=== PATIENT | female | born 1970 | race Caucasian/White ===

== ENCOUNTER 2016-11-29 14:14 | Emergency (ER) | payer MEDICAID, OTHER ==
[~2016-11-29] VITALS: Wt 68.0 kg
[2016-11-29] MEDS ORDERED: SULF1TAB31 PO (14:50)
[2016-11-29] MEDS ORDERED: CEPH-443 PO (14:51)
--- NOTE | 2016-11-29 14:54 | ERD ---
ER Documentation Chief Complaint Date/Time DATE: 11/29/16 TIME: 14:52 Chief Complaint scalp itch for the past 8 days. no trauma or drainage HPI Patient is a 46-year-old female presents to the ED for concerns of scalp itching and pain. Patient states initially she noticed a small pimple in the back of her head. She states over the last week, the lesion has been growing in size. Patient denies any drainage or bleeding from the active lesion. She also reports scaly skin of her scalp. Patient denies any head injury. Patient denies any fevers, chills nausea, vomiting, chest pain, shortness of breath, LOC. Patient does report right-sided ear pain. She denies any new environments. ROS All systems reviewed and are negative except as per history of present illness. Medications Home Meds Active Scripts Cephalexin* (Keflex*) 500 Mg Capsule, 500 MG PO QID for 10 Days, CAP Prov:DONN ALDANA PA-C 11/29/16 Sulfamethoxazole/Trimethoprim* (Bactrim Ds* Tablet) 1 Each Tablet, 1 TAB PO BID , #20 TAB Prov:DONN ALDANA PA-C 11/29/16 Allergies Allergies: Coded Allergies: No Known Allergy (Unverified , 03/03/14) PMhx/Soc Medical and Surgical Hx: pt denies Medical Hx, pt denies Surgical Hx History of Surgery: No Anesthesia Reaction: No Hx Neurological Disorder: No Hx Respiratory Disorders: No Hx Cardiac Disorders: No Hx Psychiatric Problems: No Hx Miscellaneous Medical Probl: No Hx Alcohol Use: No Hx Substance Use: No Hx Tobacco Use: No Smoking Status: Never smoker FmHx Family History: No diabetes Physical Exam Vitals Vital Signs Date Time Temp Pulse Resp B/P Pulse Ox O2 Delivery O2 Flow Rate FiO2 11/29/16 14:16 98.5 75 20 132/68 99 Physical Exam GENERAL: Well-developed, well-nourished female. Appears in no acute distress. HEAD: Normocephalic, atraumatic. No deformities or ecchymosis. 2 cm erythematous, circular boil noted in the patient's mid occipital region. No active bleeding or discharge. No fluctuance or induration noed. No Infestations noted in patient's scalp or hair. +Dry scalp, flaking noted. EYE: Pupils equal, round, and reactive to light. EOMs intact. No conjunctival erythema. No eye discharge. ENT: External ear without any masses or tenderness. Auditory canals clear bilaterally. TM visualized bilaterally, non-erythematous, non-bulging. Nasal mucosa pink with no discharge. NECK: Supple. No meningismus. Normal ROM of the neck. No cervical spine tenderness noted. LUNG: Clear to auscultation bilaterally. No rhonchi, wheezing, rales or coarse breath sounds. HEART: Regular rate and rhythm. No murmurs, rubs or gallops. BACK: No midline tenderness. EXTREMITIES: Equal pulses bilaterally. No peripheral clubbing, cyanosis or edema. No unilateral leg swelling. NEUROLOGIC: Alert and oriented to person, place and time. Moving all four extremities. 5/5 strength in all extremities. Normal speech. Steady gait. SKIN: Normal color. Warm and dry. No rashes or lesions. Procedures/MDM MEDICAL DECISION MAKING: Patient is a 46-year-old female presents to the ED with concerns of a lesion to the back of her head as well as scalp itching. Patient also reported right- sided ear pain. Vital signs were reviewed. Patient is afebrile. Patient was not hypoxic. Patient was hemodynamically stable. At this time, patient's presentation was consistent with scalp boil. Low suspicion for deep space infection, abscess, scalp infestations, tension headache, migraine headache, acute otitis media, otitis externa. PRESCRIPTION: Bactrim, Keflex DISCHARGE: At this time, patient is stable for discharge and outpatient management. Warm compresses advised. Patient was given referral information for beauty sales consultant. I have instructed the patient to follow-up with his/her primary care physician in 1-2 days. I have discussed with the patient the possibility of needing to see a specialist for further workup and imaging studies if symptoms persist. I have instructed the patient to promptly return to the ER for any new or worsening symptoms including increased pain, fever, nausea, vomiting, weakness or LOC. The patient and/or family expressed understanding of and agreement with this plan. All questions were answered. Home care instructions were provided. Departure Diagnosis: Primary Impression: Boil of head or scalp Additional Impression: Ear pain, right Condition: Stable Patient Instructions: Abscess, Antiobiotic Treatment Only Referrals: DORIS ELLINGTON MD,KAEL SWANN,OSORIO M MD BHAVIN SUH LAWRENCE J [facility] YOU HAVE RECEIVED A MEDICAL SCREENING EXAM AND THE RESULTS INDICATE THAT YOU DO NOT HAVE A CONDITION THAT REQUIRES URGENT TREATMENT IN THE EMERGENCY DEPARTMENT. FURTHER EVALUATION AND TREATMENT OF YOUR CONDITION CAN WAIT UNTIL YOU ARE SEEN IN YOUR DOCTORS OFFICE WITHIN THE NEXT 1-2 DAYS. IT IS YOUR RESPONSIBILITY TO MAKE AN APPOINTMENT FOR FOLOW-UP CARE. IF YOU HAVE A PRIMARY DOCTOR --you should call your primary doctor and schedule an appointment IF YOU DO NOT HAVE A PRIMARY DOCTOR YOU CAN CALL OUR PHYSICIAN REFERRAL HOTLINE AT IF YOU CAN NOT AFFORD TO SEE A PHYSICIAN YOU CAN CHOSE FROM THE FOLLOWING [facility] [address] [facility] [address] [facility] [address] [facility] [address] [facility] [address] [facility]. [facility] [address] [facility]. [facility] YOU HAVE RECEIVED A MEDICAL SCREENING EXAM AND THE RESULTS INDICATE THAT YOU DO NOT HAVE A CONDITION THAT REQUIRES URGENT TREATMENT IN THE EMERGENCY DEPARTMENT. FURTHER EVALUATION AND TREATMENT OF YOUR CONDITION CAN WAIT UNTIL YOU ARE SEEN IN YOUR DOCTORS OFFICE WITHIN THE NEXT 1-2 DAYS. IT IS YOUR RESPONSIBILITY TO MAKE AN APPOINTMENT FOR FOLOW-UP CARE. IF YOU HAVE A PRIMARY DOCTOR --you should call your primary doctor and schedule and appointment IF YOU DO NOT HAVE A PRIMARY DOCTOR YOU CAN CALL OUR PHYSICIAN REFERRAL HOTLINE AT . IF YOU CAN NOT AFFORD TO SEE A PHYSICIAN YOU CAN CHOSE FROM THE FOLLOWING [facility] INSTITUTIONS: [facility] [address] [place] [address] [facility] [address] [place] [address] [facility] [address] [place] [address] Additional Instructions: Llame al doctor MAANA y mandi joey YEIMI PARA DENTRO DE 1-2 [address].Dgale a la secretaria que nosotros le instruimos hacer esta yeimi.Avise o llame si montiel condicin se empeora antes de la yeimi. Regresa aqui si peor o no mejor. See referral information for beauty sales consultant. DONN ALDANA PA-C Nov 29, 2016 14:54
== END 2016-11-29 16:06 | disposition home or self-care (01) ==
LOC: FTE 14:14
DX: L02.821 Furuncle of head [any part, except face] (principal); H92.01 Otalgia, right ear
CPT/HCPCS: 99284

== ENCOUNTER 2017-08-21 10:00 | Emergency (ER) | END 2017-08-21 10:10 | disposition home or self-care (01) ==

== ENCOUNTER 2018-10-02 08:50 | Emergency (ER) | payer MEDICAID ==
[~2018-10-02] VITALS: Ht 160 cm; Wt 87.0 kg
[~2018-10-02 08:50] MED LIST: CEPH-443 PO; IBUP-1542 PO; SULF1TAB31 PO
[2018-10-02 08:59] VITALS: BP 127/66; PULSE 57; RESP 22; Ht 160 cm; Wt 87.0 kg
[2018-10-02] MEDS ORDERED: POLYMYXIN/TRIMETHOPRIM 10 ML OPH BOTH EYES ONE (09:30)
[2018-10-02] MEDS ORDERED: AMOX500C2 PO (09:31)
[2018-10-02] MEDS ORDERED: BENZ-6 PO (09:31)
[2018-10-02] MEDS ORDERED: POLY10DR19 BOTH EYES (09:31)
--- NOTE | 2018-10-02 09:38 | ERD ---
ER Documentation Chief Complaint Chief Complaint bilateral eyes - pain/irritation and redness; right ear pain HPI 47-year-old female presents with complaint of bilateral eye redness, right ear pain, and cough for last 2 days. Patient states that she is been having some discharge from the bilateral eyes. Denies any difficulty with vision. Denies any acute pain in the eyes. Denies any decreased hearing. Denies any fevers, dysuria, joint pain, chest pain, wheezing, stridor, shortness of breath. Denies any treatments. Denies allergies. Denies medical problems. ROS All systems reviewed and are negative except as per history of present illness. Medications Home Meds Active Scripts Benzonatate* (Tessalon Perle*) 100 Mg Capsule, 100 MG PO Q8H PRN for COUGH, #30 CAP Prov:BRANDEE CRAFT 10/02/18 Polymyxin B Sulfate-TMP* (Polymyxin B-TMP Eye Drops*) 10 Ml Drops, 1 DROP BOTH EYES Q3H for conjunctivitis for 10 Days, EA Prov:BRANDEE CRAFT 10/02/18 Amoxicillin* (Amoxicillin*) 500 Mg Cap, 500 MG PO TID for otitis media for 10 Days, CAP Prov:BRANDEE CRAFT 10/02/18 Ibuprofen* (Motrin*) 600 Mg Tab, 600 MG PO Q6, #30 TAB Prov:AYAH COWAN PA-C 08/21/17 Sulfamethoxazole/Trimethoprim* (Bactrim Ds* Tablet) 1 Each Tablet, 1 TAB PO BID, #14 TAB Prov:AYAH COWAN PA-C 08/21/17 Cephalexin* (Keflex*) 500 Mg Capsule, 500 MG PO QID for 7 Days, CAP Prov:AYAH COWAN PA-C 08/21/17 Cephalexin* (Keflex*) 500 Mg Capsule, 500 MG PO QID for 10 Days, CAP Prov:DONN ALDANA PA-C 11/29/16 Sulfamethoxazole/Trimethoprim* (Bactrim Ds* Tablet) 1 Each Tablet, 1 TAB PO BID, #20 TAB Prov:DONN ALDANA PA-C 11/29/16 Allergies Allergies: Coded Allergies: No Known Allergy (Unverified , 03/03/14) PMhx/Soc History of Surgery: No Anesthesia Reaction: No Hx Neurological Disorder: No Hx Respiratory Disorders: No Hx Cardiac Disorders: No Hx Psychiatric Problems: No Hx Miscellaneous Medical Probl: No Hx Alcohol Use: No Hx Substance Use: No Hx Tobacco Use: No FmHx Family History: No diabetes, No coronary disease, No other Physical Exam Vitals Vital Signs Date Temp Pulse Resp B/P (MAP) Pulse Ox O2 O2 Flow FiO2 Time Delivery Rate 10/02/18 97.8 57 22 127/66 97 08:59 (86) Physical Exam Const: No acute distress Head: Atraumatic Eyes: Sclerae injected bilaterally. PERRLA. EOMs intact. Right TM is eryth ematous and edematous. ENT: Normal External Ears, Nose and Mouth. Neck: Full range of motion. No meningismus. Resp: Clear to auscultation bilaterally Cardio: Regular rate and rhythm, no murmurs Abd: Soft, non tender, non distended. Normal bowel sounds Skin: No petechiae or rashes Back: No midline or flank tenderness Ext: No cyanosis, or edema Neur: Awake and alert Psych: Normal Mood and Affect Results 24 hrs Current Medications Medications Dose Sig/Rere Start Time Status Last (Trade) Ordered Route PRN Stop Time Admin Dose Reason Admin Polymyxin/ 1 drop ONCE ONCE 10/02/18 DC Trimethoprim BOTH EYES 09:30 Sulfate 10/02/18 09:31 (Polytrim Oph) Procedures/MDM MDM: Patient's presentation is consistent with otitis media as well as conjunctivitis. Patient given Rx for amoxicillin as well as Polytrim drops. Patient given Tessalon Perls for cough. I have low suspicion for mastoiditis, pneumonia, tuberculosis, uveitis, corneal ulceration, herpes conjunctivitis, gonorrhea conjunctivitis, glaucoma, or any other emergent condition. Patient discharged with strict ER precautions. Patient advised to follow up with PMD. All questions answered at discharge. Departure Diagnosis: Primary Impression: Otitis media Otitis media type: unspecified Chronicity: acute Qualified Codes: H66.90 - Otitis media, unspecified, unspecified ear Additional Impressions: Conjunctivitis Conjunctivitis type: acute Acute conjunctivitis type: unspecified Laterality: bilateral Qualified Codes: H10.33 - Unspecified acute conjunctivitis, bilateral Cough Condition: Stable Patient Instructions: Conjunctivitis Caused by Infection, Otitis Media, Abx Tx (Adult) Referrals: [facility] YOU HAVE RECEIVED A MEDICAL SCREENING EXAM AND THE RESULTS INDICATE THAT YOU DO NOT HAVE A CONDITION THAT REQUIRES URGENT TREATMENT IN THE EMERGENCY DEPARTMENT. FURTHER EVALUATION AND TREATMENT OF YOUR CONDITION CAN WAIT UNTIL YOU ARE SEEN IN YOUR DOCTORS OFFICE WITHIN THE NEXT 1-2 DAYS. IT IS YOUR RESPONSIBILITY TO MAKE AN APPOINTMENT FOR FOLOW-UP CARE. IF YOU HAVE A PRIMARY DOCTOR --you should call your primary doctor and schedule an appointment IF YOU DO NOT HAVE A PRIMARY DOCTOR YOU CAN CALL OUR PHYSICIAN REFERRAL HOTLINE AT IF YOU CAN NOT AFFORD TO SEE A PHYSICIAN YOU CAN CHOSE FROM THE FOLLOWING [facility] [address] [facility] [address] [facility]. [facility] [address] [facility] [address] [facility] [address] [facility]. [facility] [address] Additional Instructions: FOLLOW UP WITH YOUR PRIMARY CARE PHYSICIAN TOMORROW.Return to this facility if you are not improving as expected. BRANDEE CRAFT October 02, 2018 09:38
== END 2018-10-02 09:41 | disposition home or self-care (01) ==
LOC: FTE 08:50
DX: H10.33 Unspecified acute conjunctivitis, bilateral (principal); H66.91 Otitis media, unspecified, right ear
CPT/HCPCS: Z7502; Z7610; 99283

== ENCOUNTER 2018-10-16 11:57 | Emergency (ER) | payer MEDICAID ==
[~2018-10-16] VITALS: Wt 87.5 kg
[~2018-10-16 11:57] MED LIST changes: +AMOX500C2 PO; +BENZ-6 PO; +POLY10DR19 BOTH EYES
[2018-10-16 12:34] VITALS: BP 123/61; PULSE 55; RESP 20
[2018-10-16] MEDS ORDERED: BENZ-6 PO (12:59)
[2018-10-16] MEDS ORDERED: AMOX1TAB10 PO (12:59)
[2018-10-16] MEDS ORDERED: D-ME473S2 PO (13:00)
--- NOTE | 2018-10-16 13:05 | ERD ---
ER Documentation Chief Complaint Chief Complaint R EAR PAIN, THROAT PAIN HPI Patient is a 47-year-old female with no past medical history who presents the ER for concerns of right ear pain x2 weeks. Patient states she was seen here 2 week ago and she was given amoxicillin which she completed. Pain intermittently improved however has started again. Patient denies any fevers or chills. Patient denies any nausea or vomiting. Patient states that she is also having throat pain. She denies any drooling, trismus or hyper extension of her neck. Patient. Patient denies any chest pain or shortness of breath. Patient denies abdominal pain. Patient denies any recent travel. ROS All systems reviewed and are negative except as per history of present illness. Medications Home Meds Active Scripts Dextromethorphan Hb-Promethazine Hcl* (Promethazine DM* Syrup) 473 Ml Syrup, 5 ML PO Q6 PRN for COUGH, #4 OZ Prov:DONN ALDANA PA-C 10/16/18 Benzonatate* (Tessalon Perle*) 100 Mg Capsule, 100 MG PO Q8H PRN for COUGH, #30 CAP Prov:DONN ALDANA PA-C 10/16/18 Amoxicillin/Potassium Clav (Amox-Clav 875-125 mg Tablet) 875-125 mg Tab, 1 TAB PO BID for 10 Days, #20 TAB Prov:DONN ALDANA PA-C 10/16/18 Benzonatate* (Tessalon Perle*) 100 Mg Capsule, 100 MG PO Q8H PRN for COUGH, #30 CAP Prov:BRANDEE CRAFT 10/02/18 Polymyxin B Sulfate-TMP* (Polymyxin B-TMP Eye Drops*) 10 Ml Drops, 1 DROP BOTH EYES Q3H for conjunctivitis for 10 Days, EA Prov:BRANDEE CRAFT 10/02/18 Amoxicillin* (Amoxicillin*) 500 Mg Cap, 500 MG PO TID for otitis media for 10 Days, CAP Prov:BRANDEE CRAFT 10/02/18 Ibuprofen* (Motrin*) 600 Mg Tab, 600 MG PO Q6, #30 TAB Prov:AYAH COWAN PA-C 08/21/17 Sulfamethoxazole/Trimethoprim* (Bactrim Ds* Tablet) 1 Each Tablet, 1 TAB PO BID, #14 TAB Prov:AYAH COWAN PA-C 08/21/17 Cephalexin* (Keflex*) 500 Mg Capsule, 500 MG PO QID for 7 Days, CAP Prov:AYAH COWAN ZURI 08/21/17 Cephalexin* (Keflex*) 500 Mg Capsule, 500 MG PO QID for 10 Days, CAP Prov:KATYADONN KEATING 11/29/16 Sulfamethoxazole/Trimethoprim* (Bactrim Ds* Tablet) 1 Each Tablet, 1 TAB PO BID, #20 TAB Prov:KATYADONN KEATING 11/29/16 Allergies Allergies: Coded Allergies: No Known Allergy (Unverified , 03/03/14) PMhx/Soc History of Surgery: No Anesthesia Reaction: No Hx Neurological Disorder: No Hx Respiratory Disorders: No Hx Cardiac Disorders: No Hx Psychiatric Problems: No Hx Miscellaneous Medical Probl: No Hx Alcohol Use: No Hx Substance Use: No Hx Tobacco Use: No FmHx Family History: No diabetes Physical Exam Vitals Vital Signs Date Temp Pulse Resp B/P (MAP) Pulse Ox O2 O2 Flow FiO2 Time Delivery Rate 10/16/18 98.9 55 20 123/61 96 12:34 (81) Physical Exam GENERAL: Well-developed, well-nourished female. Appears in no acute distress. HEAD: Normocephalic, atraumatic. No deformities or ecchymosis. EYE: Pupils equal, round, and reactive to light. EOMs intact. No conjunctival erythema. No eye discharge. ENT: External ear without any masses or tenderness. Right TM is erythematous and bulging. No mastoid tenderness noted bilaterally. Left TM appears normal. Nasal congestion noted on exam. Nasal mucosa pink with no discharge. Oropharynx is pink without any tonsillar erythema or exudates. No uvula deviation. No kissing tonsils. NECK: Supple. No meningismus. Normal ROM of the neck. LUNG: Clear to auscultation bilaterally. No rhonchi, wheezing, rales or coarse breath sounds. HEART: Regular rate and rhythm. No murmurs, rubs or gallops. EXTREMITIES: Equal pulses bilaterally. No peripheral clubbing, cyanosis or edema. No unilateral leg swelling. NEUROLOGIC: Alert and oriented to person, place and time. Moving all four ext remities. 5/5 strength in all extremities. Normal speech. Steady gait. SKIN: Normal color. Warm and dry. No rashes or lesions. Procedures/MDM MEDICAL DECISION MAKING: This is a 47-year-old female presents the ER for concerns of ear pain x2 weeks. Patient also reports throat pain and a cough. She denies any fevers or chills. Patient states she did take amoxicillin which did initially help with symptoms have her ear pain restarted.. Vital signs were reviewed. Patient was afebrile. Patient was not hypoxic. ENT exam revealed concerns of recurrent otitis media. Patient will be given Augmentin. Patient was advised to follow-up with an ENT specialist. Throat exam was normal. Lung exam was normal. Given these findings, the patients presentation is most consistent with otitis media and viral URI. Low suspicion pneumonia, meningitis, sinusitis, otitis externa, mastoiditis, osteomyelitis, strep pharyngitis, epiglottitis or peritonsillar abscess. PRESCRIPTIONS: Tessalon Perles, promethazine cough syrup, Augmentin DISCHARGE: At this time, patient is stable for discharge and outpatient management. Supportive therapies such as OTC throat lozenges, salt water gurgles, popsicles and jello discussed. I have instructed the patient to follow-up with his/her primary care physician in 1-2 days. I have instructed the patient to promptly return to the ER for any new or worsening symptoms including increased pain, swelling, fever, nausea, vomiting, weakness or difficulty breathing. The patient and/or family expressed understanding of and agreement with this plan. All questions were answered. Home care instructions were provided. Disclaimer: Inadvertent spelling and grammatical errors are likely due to EHR/dictation software use and do not reflect on the overall quality of patient care. Also, please note that the electronic time recorded on this note does not necessarily reflect the actual time of the patient encounter. Departure Diagnosis: Primary Impression: URI (upper respiratory infection) URI type: unspecified URI Qualified Codes: J06.9 - Acute upper respiratory infection, unspecified Additional Impression: Otitis media Otitis media type: unspecified Chronicity: chronic Qualified Codes: H66.90 - Otitis media, unspecified, unspecified ear Condition: Fair Patient Instructions: Preventing Common Respiratory Infections, Otitis Media, Abx Tx (Adult) Referrals: ARIK SYLVESTER MD,NATALIA VAZQUEZ,THAD Chapa MD [facility] YOU HAVE RECEIVED A MEDICAL SCREENING EXAM AND THE RESULTS INDICATE THAT YOU DO NOT HAVE A CONDITION THAT REQUIRES URGENT TREATMENT IN THE EMERGENCY DEPARTMENT. FURTHER EVALUATION AND TREATMENT OF YOUR CONDITION CAN WAIT UNTIL YOU ARE SEEN IN YOUR DOCTORS OFFICE WITHIN THE NEXT 1-2 DAYS. IT IS YOUR RESPONSIBILITY TO MAKE AN APPOINTMENT FOR FOLOW-UP CARE. IF YOU HAVE A PRIMARY DOCTOR --you should call your primary doctor and schedule an appointment IF YOU DO NOT HAVE A PRIMARY DOCTOR YOU CAN CALL OUR PHYSICIAN REFERRAL HOTLINE AT IF YOU CAN NOT AFFORD TO SEE A PHYSICIAN YOU CAN CHOSE FROM THE FOLLOWING [facility] [address] [address] [facility]. [facility] [address] [address] [facility] [address] [facility] [facility] [address] [facility] [address] [facility] [address] [facility]. [facility] YOU HAVE RECEIVED A MEDICAL SCREENING EXAM AND THE RESULTS INDICATE THAT YOU DO NOT HAVE A CONDITION THAT REQUIRES URGENT TREATMENT IN THE EMERGENCY DEPARTMENT. FURTHER EVALUATION AND TREATMENT OF YOUR CONDITION CAN WAIT UNTIL YOU ARE SEEN IN YOUR DOCTORS OFFICE WITHIN THE NEXT 1-2 DAYS. IT IS YOUR RESPONSIBILITY TO MAKE AN APPOINTMENT FOR FOLOW-UP CARE. IF YOU HAVE A PRIMARY DOCTOR --you should call your primary doctor and schedule and appointment IF YOU DO NOT HAVE A PRIMARY DOCTOR YOU CAN CALL OUR PHYSICIAN REFERRAL HOTLINE AT . IF YOU CAN NOT AFFORD TO SEE A PHYSICIAN YOU CAN CHOSE FROM THE FOLLOWING ON LICENSE OF [facility] INSTITUTIONS: [facility] [address] [place] [address] [facility] [address] [place] [address] [facility] [address] [place] [address] Additional Instructions: Va joey specialista para los oidos. Llame al doctor MAANA y mandi joey YEIMI PARA DENTRO DE 1-2 [address].Dgale a la secretaria que nosotros le instruimos hacer esta yeimi.Avise o llame si montiel condicin se empeora antes de la yeimi. Regresa aqui si peor o no mejor. DONN ALDANA PA-C October 16, 2018 13:05
== END 2018-10-16 13:19 | disposition home or self-care (01) ==
LOC: E/R 11:57
DX: J06.9 Acute upper respiratory infection, unspecified (principal); H66.91 Otitis media, unspecified, right ear
CPT/HCPCS: 99283